=== PATIENT | female | born 1970 | race Caucasian/White ===

== ENCOUNTER 2017-06-08 07:41 | Day surgery (SDC) | payer MEDICAID ==
[2017-06-05 11:18] LABS: ALBUMIN 3.7 g/dL (3.4-5.0); ALKALINE PHOSPHATASE 124 U/L (46-116); ALT/SGPT 32 U/L (14-59); AST/SGOT 25 U/L (15-37); BILIRUBIN TOTAL 0.43 mg/dL (0.20-1.00); CALCIUM 8.8 mg/dL (8.5-10.1); CARBON DIOXIDE 27.2 mmol/L (21-32); CHLORIDE SERUM 102 mmol/L (98-107); CREATININE SERUM 0.6 mg/dL (0.6-1.0); GFR1 > 60 mL/min; GLUCOSE SERUM 87 mg/dL (74-106); SODIUM SERUM 136 mmol/L (136-145); TOTAL PROTEIN, SERUM 8.1 g/dL (6.4-8.2)
[2017-06-05 11:20] LABS: BASOPHIL % 3.7 % (0-2); PLATELET COUNT 433 x10^3mcL (130-400)
[~2017-06-08] VITALS: Ht 165.1 cm; Wt 106.6 kg
[2017-06-08 08:00] VITALS: BP 145/73
[2017-06-08 18:15] VITALS: BP 135/75
[2017-06-08 18:25] VITALS: BP 135/75
== END 2017-06-08 20:10 | disposition home or self-care (01) ==
LOC: DS 07:41 → OR 12:00 → MU 17:20 → DS 20:10
PROVIDERS: Surgery
PROC: 07B50ZZ Excision of Right Axillary Lymphatic, Open Approach (ICD-10-PCS; 2017-06-08)
PROC: 0HBT0ZZ Excision of Right Breast, Open Approach (ICD-10-PCS; principal; 2017-06-08 12:00)
DX: C50.911 Malignant neoplasm of unspecified site of right female breast (principal); C77.3 Secondary and unspecified malignant neoplasm of axilla and upper limb lymph nodes; Z68.38 Body mass index [BMI] 38.0-38.9, adult; Z80.3 Family history of malignant neoplasm of breast; Z17.0 Estrogen receptor positive status [ER+]
CPT/HCPCS: 88344; 88361; J0690; J1170; J2001; J2405; J2704; J3010; J3490; J7120; Q9968

== ENCOUNTER 2017-07-02 15:08 | Inpatient (IN) | payer MEDICAID ==
[~2017-07-02] VITALS: Ht 160 cm; Wt 110.2 kg
--- NOTE | 2017-07-02 16:57 | NUR ---
PT SAYS, RIGHT BREAST SURGERY ON 06/08/17. C/O FEVER, REDNESS TO THE RIGHT BREAST X A FEW DAYS
[2017-07-02 18:48] LABS: BASOPHIL % 0.3 % (0-2)
[2017-07-02 18:53] LABS: CALCIUM 8.6 mg/dL (8.5-10.1); CARBON DIOXIDE 28.4 mmol/L (21-32); CHLORIDE SERUM 103 mmol/L (98-107); CREATININE SERUM 0.8 mg/dL (0.6-1.0); GFR1 > 60 mL/min; GLUCOSE SERUM 100 mg/dL (74-106); POTASSIUM SERUM 4.1 mmol/L (3.5-5.1); SODIUM SERUM 137 mmol/L (136-145)
[2017-07-02 18:58] LABS: ALBUMIN 3.6 g/dL (3.4-5.0); ALKALINE PHOSPHATASE 112 U/L (46-116); ALT/SGPT 22 U/L (14-59); AST/SGOT 13 U/L (15-37); BILIRUBIN TOTAL 0.39 mg/dL (0.20-1.00); TOTAL PROTEIN, SERUM 7.6 g/dL (6.4-8.2)
--- NOTE | 2017-07-02 19:22 | NUR ---
DR NOELLE ALEXIS, PLANS TO PERFORM RIGHT BREAST INCISION AND DRAINAGE ABSCESS, PT SIGNED THE CONSENT AND VEBALIZED UNDERSTANDING, LAST MEAL 07/02/17 AT 11:00 AMD LAST ORAL LIQUIDS AT 11:00 AM 07/02/17. REPORT TO MARTELL LITTLEJOHN ED
[2017-07-02 19:30] LABS: PLATELET COUNT 446 x10^3mcL (130-400)
--- NOTE | 2017-07-02 19:44 | NUR ---
PHARMACY CONTACTED FOR ANTIBIOTIC.
--- NOTE | 2017-07-02 20:00 | NUR ---
REPORT GIVEN TO DUST OPERATORERON BLAKELY.
--- NOTE | 2017-07-02 20:08 | NUR ---
PT MEDICATED PER ORDER. SEE EMAR.
[2017-07-02] MEDS ORDERED: NOR10T (20:24)
--- NOTE | 2017-07-02 20:25 | NUR ---
REPORT GIVEN TO ERON BOOGIE TO ASSUME CARE OFPT.
--- NOTE | 2017-07-02 20:30 | NUR ---
PT TRANSFERRED TO OR. PT A&OX4, NO DISTRESS NOTED, RESP EVEN AND UNLABORED.
[2017-07-02 22:47] VITALS: BP 129/63
--- NOTE | 2017-07-02 22:51 | NUR ---
RECEIVED PT FROM OR VIA KV[facility]. ORIENTED PT TO ROOM AND SURROUNDINGS. IV NOTED TO PILI QUILES INTACT. TELE 18 PLACED ON PT READING NSR. INSTRUCTED PT ON THE USE OF CALL LIGHT FOR ASSISTANCE. ENDOSRED PT TO PRIMARY NURSE CHUYITA
--- NOTE | 2017-07-02 23:00 | NUR ---
RECEIVED PT FROM DARYL LITTLEJOHN. AAOX4. TELE #18. DENIES CP/PRESSURE AT THIS TIME. DENIES SOB ON 2LNC. PULSES PALPABLE. WOUND DRESSING TO RIGHT BREAST. CDI. I&D COMPLETED BY DR NOLELE Garcia. DENIES PAIN AT THIS TIME. COMPLAINTS OF NAUSEA AND DIZZINESS. WILL NOTIFY MD ABOUT DIFFERENT ANTIEMETIC. RECEIVED ZOFRAN 1 HR PRIOR TO ARRIVAL SO CANNOT READMINISTER. WILL AWAIT FURTHER ORDERS. CALL LIGHT IN REACH. BED IN LOWEST POSITION. WILL CONTINUE TO MONITOR. DAUGHTER AT BEDSIDE.
--- NOTE | 2017-07-02 23:40 | NUR ---
PT AMBULATED TO RESTROOM WITH DAUGHTER ASSISTANCE. TOLERATED WELL. BACK IN BED. WILL CONTINUE TO MONITOR
[2017-07-03 00:25] LABS: PHOSPHOROUS 3.8 mg/dL (2.5-4.9)
[2017-07-03 00:32] LABS: T3 TOTAL 1.09 ng/mL
[2017-07-03 00:37] LABS: FREE THYROXINE INDEX 2.8 ug/dL (1.4-4.5); T4(THYROXINE) 7.9 ug/dL (4.7-13.3)
--- NOTE | 2017-07-03 05:00 | NUR ---
PT COMPLAINS OF HEADACHE PAIN 9/10 AND NAUSEA. MEDICATED WITH PRN MEDICATIONS PER EMAR PROTOCOL. WILL CONTINUE TO MONITOR
[2017-07-03 05:49] VITALS: BP 125/64
[2017-07-03 06:29] LABS: BASOPHIL % 0.5 % (0-2); PLATELET COUNT 374 x10^3mcL (130-400)
--- NOTE | 2017-07-03 06:55 | NUR ---
PT RESTING PEACEFULLY IN BED. NO COMPLAINTS OF PAIN AT THIS TIME. RESPIRATIONS EVEN AND UNLABORED. NO NAUSEA AT THIS TIME. IV TO LFA PATENT AND INTACT. INFUSING WELL. WILL ENDORSE CARE TO ONCOMING SHIFT
--- NOTE | 2017-07-03 07:15 | NUR ---
PT WAS ENDORSE TO ME THIS MORNING. PT SLEEPING VERY COMFORTABLE. NO RESP DISTRESS OR SOB NOTED. TELE 18 NSR. HR 57. LUNGS CLEAR ON RA. 1&D DRESSING R BREAST CDI, INTACT AND NO DRAINAGE NOTED. IV TO THE LFA PATENT AND INTACT. WILL CONTINUE PLAN OF CARE.
[2017-07-03 07:21] LABS: RED CELL DISTRIBUTION WIDTH 17.2 % (11.5-14.5)
[2017-07-03 09:41] VITALS: BP 135/62
--- NOTE | 2017-07-03 11:47 | NUR ---
PT C/O RIGHT BREAST PAIN AND DYKES 9/10. MEDICATED PER EMAR.
--- NOTE | 2017-07-03 12:37 | NUR ---
PT IS SLEEPING VERY COMFORTABLE. NO SIGNS OF PAIN OR DISCOMFORT AT THIS TIME. BREATHING EVEN AND UNLABORED. NO RESP DISTRESS OR SOB NOTED. WILL CONTINUE TO MONITOR PT CARE AND PAIN.
[2017-07-03 13:52] VITALS: BP 136/71
--- NOTE | 2017-07-03 15:22 | NUR ---
PT C/O DYKES. WILL MEDICATED PER EMAR. 03/12
[2017-07-03 17:08] VITALS: BP 137/65
--- NOTE | 2017-07-03 18:34 | NUR ---
PT IS SITTING UP IN BED WITH FAMILY BY HER SIDE. BREATHING EVEN AND UNLABORED, NO RESP DISTRESS OR SOB NOTED. IS C/O R BREAST PAIN, WILL MEDICATE PER EMAR. IV TO THE LFA PATENT AND INTACT. WILL ENDORSE PT TO INCOMING NURSE.
--- NOTE | 2017-07-03 19:10 | NUR ---
REC'D PT FROM DAY NURSE. PT AAOX4, SPEECH CLEAR, FOLLOWS COMMANDS. NO SIGNS OF DISTRESS NOTED. BREATHING EVEN/UNLABORED ON RA. TELE 18. DENIES CP, DIZZINESS, OR PALPITATIONS. NO EDEMA NOTED. ABD SOFT/ROUND. DENIES ABD PAIN. REPORTS MILD NAUSEA AND TENDERNESS WITH PALPATION ALL FOUR QUADRANTS. VOIDING. FREELY AMBULATORY. DRESSING TO R BREAST CDI. REPORTS PAIN TO R BREAST 7/10. WILL GIVE PAIN MED WHEN DUE. IV TO LFA PATENT AND INFUSING, SITE WNL. CALL LIGHT WITHIN REACH, BED AT LOWEST POSITION. WILL CONTINUE TO MONITOR.
--- NOTE | 2017-07-03 21:00 | NUR ---
DILAUDID GIVEN FOR PAIN TO R BREAST 03/12. WILL MONITOR FOR RELIEF.
[2017-07-03 21:15] VITALS: BP 153/83
[2017-07-03 21:56] LABS: microscopic required? NO
[2017-07-03 22:05] LABS: urine erythrocyte NEGATIVE (NEGATIVE)
[2017-07-03 22:14] LABS: AMPHETAMINE QUAL UR NONE DETECTED (NEG <=1000)
--- NOTE | 2017-07-04 02:40 | NUR ---
PT RESTING IN BED WITH EYES CLOSED. LAYING ON R SIDE. NO SIGNS OF DISTRESS NOTED. BREATHING EVEN/UNLABORED ON RA. CALL LIGHT WITHIN REACH, BED AT LOWEST POSITION. WILL CONTINUE TO MONITOR.
--- NOTE | 2017-07-04 05:29 | NUR ---
PT UP TO VOID. STEADY GAIT. NO SIGNS OF DISTRESS NOTED. BREATHING EVEN/UNLABORED ON RA. C/O OF PAIN TO R BREAST 06/12 AND NAUSEA. DILAUDID AND SCHEDULED REGLAN GIVEN PER ORDER. DRESSING CHANGED TO R BREAST. SUTURES TO R BREAST NOTED. NO S/SX OF INFECTION. NO DRAINAGE. ISLAND DRESSING APPLIED. LINENS AND GOWN CHANGED BY TRANSMISSION MECHANIC. NO SIGNIFICANT CHANGES DURING SHIFT. CALL LIGHT WITHIN REACH, BED AT LOWEST POSITION. WILL ENDORSE TO DAY NURSE.
[2017-07-04 06:03] LABS: BASOPHIL % 0.4 % (0-2); PLATELET COUNT 347 x10^3mcL (130-400)
[2017-07-04 06:21] VITALS: BP 145/66
[2017-07-04 06:28] LABS: CALCIUM 8.2 mg/dL (8.5-10.1); CHLORIDE SERUM 106 mmol/L (98-107); CREATININE SERUM 0.7 mg/dL (0.6-1.0); GFR1 > 60 mL/min; GLUCOSE SERUM 97 mg/dL (74-106); POTASSIUM SERUM 4.4 mmol/L (3.5-5.1); SODIUM SERUM 140 mmol/L (136-145)
[2017-07-04 06:42] LABS: RED CELL DISTRIBUTION WIDTH 16.9 % (11.5-14.5)
[2017-07-04 06:43] LABS: rbc morphology (normal/abnorm) ABNORMAL (NORMAL)
--- NOTE | 2017-07-04 09:05 | NUR ---
AT 0705 - RECEIVED PATIENT FROM NIGHT NURSE. PATIENT SLEEPING; RESPIRATIONS REGULAR. MONITOR SHOWING SINUS RHYTHM; RATE 50'S. IV INFUSING NS AT 100ML/HR. AT 0750 - AWAKE, ALERT AND ORIENTED. FAMILY AT BEDSIDE. DRESSING TO R BREAST IS DRY AND INTACT. AT 0800 - SEEN BY DR WHITTINGTON DURING MORNING ROUNDS MEDICAL TEAM DOCTORS, JESUS NAVARRETE AND MYSELF PRIMARY NURSE ALSO PRESENT. DR WHITTINGTON SPOKE WITH PATIENT AND FAMILY ABOUT TREATMENT AND PLAN TO DC HOME LATER TODAY. DR PANDA TRANSLATED IN CZECH. PATIENT VERBALIZED UNDERSTANDING. AT 0815 - MEDICATED WITH NORCO FOR BREAST PAIN AND HEADACHE. ALSO GIVEN ZOFRAN PER EMAR FOR SLIGHT NAUSEA. PATIENT IS AMBULATORY.
[2017-07-04 09:24] VITALS: BP 162/77
--- NOTE | 2017-07-04 10:09 | NUR ---
PATIENT REPORTS THAT HEADACHE IS STIL PRESENT. SPOKE WITH DR BARAJAS. AWAITING ORDER. NO FURTHER NAUSEA. PATIENT WAS ABLE TO EAT BREAKFAST.
[2017-07-04] MEDS ORDERED: KEFLEX500 M1 PO (12:10)
[2017-07-04] MEDS ORDERED: LAC PO (12:11)
[2017-07-04] MEDS ORDERED: ACETAMINOPHEN-H1 TA1 PO (12:12)
[2017-07-04] MEDS ORDERED: COL100 PO (12:14)
[2017-07-04 12:35] VITALS: BP 149/84
--- NOTE | 2017-07-04 12:46 | NUR ---
AT 1215 - REPORTS THAT HEADACHE HAS RESOLVED BUT C/O HAS BURNING PAIN IN R BREAST. REFUSED TO TAKE NORCO 7.5/325 - SAYS IT DOES NOT WORK FOR HER. CONTACTED DR OROZCO. DR SAID SHE WILL COME AND SEE PATIENT.
[2017-07-04 12:53] VITALS: BP 149/84
--- NOTE | 2017-07-04 13:43 | NUR ---
AT 1320 - PATIENT HAS BEEN SEEN BY DR BARAJAS. NOW GIVEN NORCO 5/325 FOR PAIN. TAKEN OFF CARDIAC MONITORING. IV INFUSION DISCONTINUED. R BREAST DRESSING CHANGED. WOUND PHOTO DOCUMENTED. PATIENT INSTRUCTED IN CARE OF WOUND. PREPARED FOR DISCHARGE.
--- NOTE | 2017-07-04 14:48 | NUR ---
IV CATHETER REMOVED INTACT BY STUDENT NURSE UNDER VERTICAL BORING MILL OPERATOR SUPERVISION. AWAITING RIDE HOME.
--- NOTE | 2017-07-04 15:10 | NUR ---
PRINTED DISCHARGE INSTRUCTIONS GIVEN AND EXPLAINED TO PATIENT AND FAMILY MEMBER. PRESCRIPTION PROVIDED. DISCHARGED HOME WITH FAMILY. ESCORTED TO DISCHARGE OFFICE AMBULATORY.
== END 2017-07-04 15:10 | disposition home or self-care (01) | DRG 813 ==
LOC: ED 15:08 → DU 18:35
PROVIDERS: Emergency Medicine; Surgery; ADMIT Family Medicine
PROC: 0H9T0ZZ Drainage of Right Breast, Open Approach (ICD-10-PCS; principal; 2017-07-02 20:00)
DX: L76.34 Postprocedural seroma of skin and subcutaneous tissue following other procedure (principal); Z68.41 Body mass index [BMI] 40.0-44.9, adult; I10 Essential (primary) hypertension; D50.9 Iron deficiency anemia, unspecified; F17.210 Nicotine dependence, cigarettes, uncomplicated; Z98.890 Other specified postprocedural states; I16.0 Hypertensive urgency; Y84.8 Other medical procedures as the cause of abnormal reaction of the patient, or of later complication, without mention of misadventure at the time of the procedure; Y92.009 Unspecified place in unspecified non-institutional (private) residence as the place of occurrence of the external cause
CPT/HCPCS: 84439; J0690; J1170; J2175; J2250; J2405; J2704; J2765; J3010; J3370; J3490; J7030; J7120; Q0092